=== PATIENT | female | born 1990 | race Caucasian/White ===

== ENCOUNTER 2016-09-11 13:24 | Emergency (ER) | payer MEDICAID ==
[2016-09-11 13:49] VITALS: BMI 20.4
[2016-09-11 14:06] VITALS: BP 131/68; PULSE 83; TEMP 98.6
--- NOTE | 2016-09-11 14:10 | EDPRACDOC ---
- General Information Chief Complaint: Back Pain Stated Complaint: BACK PAIN/ INCREASED URINATION Time Seen by Provider: 09/11/16 14:04 Mode Of Arrival: Car Home Medications: Home Medications Meloxicam [Mobic] 15 mg PO DAILY 04/16/16 Norgestimate-Ethinyl Estradiol [Mononessa] 1 tab PO DAILY 04/16/16 Cephalexin Monohydrate [Keflex] 500 mg PO Q6H #20 cap 09/11/16 Ibuprofen Tablet [Motrin] 800 mg PO TID PRN #30 tab 09/11/16 Phenazopyridine HCl [Pyridium] 200 mg PO TID #6 tablet 09/11/16 Allergies/Adverse Reactions: Allergies Allergy/AdvReac Type Severity Reaction Status Date / Time No Known Allergies Allergy Verified 01/24/16 17:58 - History of Present Illness Onset: saturday HPI: PT COMPLAINS OF WORSENING RIGHT FLANK PAIN SINCE SATURDAY, STATES PAIN IS ACHING, CONSTANT, NO EXAC/AMEL FACTORS, STATES HAS HAD URINARY FREQUENCY, SOME NAUSEA, NO VOMITING, STATES LAST NIGHT SHE NOTICED SHE WAS HAVING SOME PAIN IN LOWER ABD WELL. NO FEVER OR CHILLS, HAS NOT TAKEN ANY MEDICATIONS FOR HER SYMPTOMS. Pain Location: Reports: Right, Flank Pain Radiates To: Reports: None Pain Caused By: Reports: Spontaneous Circumstances: Reports: Unknown Relevant History: Reports: None Currently ?: No Pain Severity: Reports: Severe Pain Quality: Reports: Aching Worsened By: Reports: Movement, Twisting, Walking Associated Signs and Symptoms: Reports: Abdominal Pain, Nausea. Denies: Dysuria , Hematuria, Vomiting ED Past Medical History - History Reviewed Yes Nurses notes reviewed and agree except as marked No Past Medical History: Yes Patient has no past medical history - Patient Medical History Psychological History: Denies: Depression - Social Medical History Smoking Status: Heavy tobacco smoker (5 or more cigarettes/day or daily pipe/ cigar) ETOH: None Substance Abuse: None EDM Review of Systems - Review of Systems Constitutional: negative: Chills, Fever Eyes: negative: Blurred Vision, Double Vision Ears: negative: Drainage Throat: negative: Pain Nose: negative: Congestion, Discharge Respiratory: negative: Cough, Shortness of Breath, Wheezing Cardiovascular: negative: Chest Pain, Palpitations Gastrointestinal: Nausea, Pain. negative: Diarrhea, Vomiting Genitourinary: Frequency. negative: Dysuria, Vaginal Discharge, Vaginal Bleeding Neurological: negative: Dizziness, Headache, Numbness, Weakness Musculoskeletal: Back Integumentary: No Symptoms Reported - Physical Exam Constitutional: Alert (Awake), No apparent distress Oriented to: Time, Person, Place Last recorded Vital Signs: Last Vital Signs Temp 98.6 F 09/11/16 14:06 Pulse 83 09/11/16 14:06 Resp 18 09/11/16 14:06 BP 131/68 09/11/16 14:06 Pulse Ox 97 09/11/16 14:06 Oxygen Pulse Oxygen Saturation 97 O2 Device Room Air Oxygen Flow Rate Fraction of Inspired Oxygen ( FIO2) - HEENT Head: Normal ( normocephalic) Eye Exam: Normal (PERRL, EOMI, Sclera white) Oropharynx: Normal (Pharynx:Moist without exudate,Gums-no swelling) Tympanic Membrane: Normal ENT EAC: Normal TMJ: Normal Nose: No Symptoms Reported (septum midline) Neck: Normal (FROM, trachea at midline) - Respiratory/Cardiovascular Respiratory: Normal - CTA (BBS clear to auscultation without adventitious sounds ) Cardiovascular: Normal (RRR without murmur, gallop or rub) - GI Auscultation: Normal (NABS) Palpation: Normal (Soft,No rebound or guarding, non distended) Tenderness: Non tender Soriano's Sign: Negative - Musculoskeletal Back: CVA Tenderness (MILD, RIGHT) Extremities: Normal (Normal tone, Pulses 2+ No cyanosis or edema, FROM) - Integumentary Skin: Normal, Warm, Dry Lymphatics: Normal (no adenopathy) - Neurologic Memory Impaired: Normal Motor Function: Normal (Normal tone, Pulses 2+ No cyanosis or edema, FROM) Cranial Nerve: Normal (CN II-X11 intact sensation, strength 5/5) Cerebellar: Normal Mood Description: Normal Perception: Normal ED Back Exam - Neurologic Motor Deficit: None - Musculoskeletal Cervical: Normal Thoracic: Normal Lumbar: Normal Midline: Normal Paraspinous: Normal - Differential Diagnosis DJD, HNP, Musculoskeletal pain, Strain - Results Urine Test Neg (NEGATIVE) 09/11/16 13:51 Lab Results 09/11/16 13:51 Urine Test Neg 09/11/16 14:12 Laboratory Results - last 24 hr 09/11/16 09/11/16 13:51 13:51 Urine Color Yellow Urine Clarity Sl cldy Urine pH 6.0 Ur Specific [place] 1.015 Urine Protein 1+ H Urine Glucose (UA) Neg Urine Ketones Neg Urine Occult Blood 2+ H Urine Nitrite Neg Urine Bilirubin Neg Urine Urobilinogen <2.0 Ur Leukocyte Esterase Trace H Urine RBC 20-30 H Urine WBC Tntc H Ur Epithelial Cells 3+ Urine Mucus Sm amt Urine Test Neg Decision Time to Discharge: 14:12 - Departure Disposition: Home Condition: Stable Final Diagnosis: UTI (urinary tract infection) Qualifiers: Urinary tract infection type: acute cystitis Hematuria presence: with hematuria Qualified Code(s): N30.01 - Acute cystitis with hematuria Instructions: Urinary Tract Infection in Women (ED) Education/Counseling Given To: Patient Education/Counseling Given Regarding: Diagnosis, Treatment, Prognosis, Follow Up Referrals: Keith Godwin MD [Primary Care Provider] - One Week Prescriptions: Cephalexin Monohydrate [Keflex] 500 mg PO Q6H #20 cap Ibuprofen Tablet [Motrin] 800 mg PO TID PRN #30 tab PRN Reason: Pain Phenazopyridine HCl [Pyridium] 200 mg PO TID #6 tablet Additional Instructions: REST, DRINK PLENTY OF FLUIDS, RETURN TO THE ED FOR ANY WORSENING SYMPTOMS OR CONCERNS.
[2016-09-11 14:11] LABS: LEUKOCYTES/URINE TRACE (NEGATIVE); NITRITE/URINE NEG (NEGATIVE); RBC/URINE 20-30 (0-5); URINE OCCULT BLOOD 2+ (NEG/TRACE); WBC/URINE TNTC (0-5)
== END 2016-09-11 14:19 | disposition home or self-care (01) ==
LOC: ED 13:24 → EDMC 14:19
DX: N30.01 Acute cystitis with hematuria (principal)
CPT/HCPCS: 81001; 81025; 99282